=== PATIENT | male | born 1960 | race Caucasian/White ===

== ENCOUNTER 2018-10-30 07:41 | Outpatient (CLI) | payer BC, OTHER ==
[~2018-10-30] VITALS: Ht 190.5 cm; Wt 99.8 kg
[2018-10-30] VITALS (8 sets, daily range): BP systolic 109–120; BP diastolic 68–78
[2018-10-30] MEDS ORDERED: TOPROL XL25 MG PO (08:22)
[2018-10-30] MEDS ORDERED: ASPIRIN325 PO (08:23)
[2018-10-30] MEDS ORDERED: LIPITOR40 MG PO (08:23)
[2018-10-30] MEDS ORDERED: VITAMIN D1000 UNI1 PO (08:24)
[2018-10-30] MEDS ORDERED: THERA1 EAC1 PO (08:25)
[2018-10-30 09:03] LABS: HEMATOCRIT 43.5 % (42.0-52.0); HEMOGLOBIN 14.7 gm/dL (14.0-18.0); MCH 30.4 pg (26.0-34.0); MCHC 33.9 g/dL (28.0-37.0); MCV 89.8 fL (80.0-100.0); RBC 4.85 mil/uL (4.50-6.00); RDW 13.4 % (10.5-14.5); WBC 5.5 thou/uL (4.0-11.0)
[2018-10-30 09:05] LABS: CALCIUM 8.9 mg/dL (8.5-10.1); CREATININE 1.4 mg/dL (0.7-1.3); POTASSIUM 4.2 mmol/L (3.5-5.1)
--- NOTE | 2018-10-30 09:33 | EKG ---
[address] [address] ELECTROCARDIOGRAM REPORT Name: MICHELLE HILARIO [facility] [id number] ������������������ Admission: 10/30/18 ������������������ Attend Phys: Liam Coombs MD Discharge: ������������������ Date of : 58 Report #: [id number] ����������������������������������������������������������������� [id number] THIS REPORT FOR: //name// [facility] Test Date: 2018-10-30 Test Time: 08:41:29 Pat Name: MICHELLE HILARIO Department: Room: Gender: M [employer] Manager: RADHA : 1960 Requested By: Liam Coombs Order Number: [id number] MD: Frederick Lai Measurements Intervals [place] Rate: 58 P: 38 [place]: 149 QRS: 10 QRSD: 99 T: 42 QT: 410 QTc: 403 Interpretive Statements Sinus bradycardia Otherwise no significant abnormality No previous ECG available for comparison Electronically Signed On 10-30-2018 9:33:27 CDT by Frederick Lai [email or web address] ��������������������������������������������� <ELECTRONICALLY SIGNED> ���������������������������������������� By: Frederick Lai MD, [facility] ��������������������������������������������� 10/30/18 0933 0841 0841 rFederick Lai MD, FAC /EPI
--- NOTE | 2018-10-30 12:39 | CATHLAB ---
[facility] [place] [address] INVASIVE PROCEDURE REPORT Name: MICHELLE HILARIO [facility] [id number] ������������� Admission: 10/30/18 ������������� Attend Phys: Liam Coombs MD Discharge: ��� ������������� ��� Date of : 58 Date of Service: 10/30/18 1239 �� Report #: [id number] �������� ��������������������������������������������[id number] THIS REPORT FOR: //name// APPROVED REPORT Study performed: 10/30/2018 09:30:51 Patient Details The patient is a 58 year-old male Event Personnel Liam Coombs [employer] Professor, Donn Padilla RN RN, Tor Malcolm RN RN, Ruby Kinney Jackson, Valisa Monitor Procedures Performed Left Heart Cath w/or w/o Coronaries [id number] [facility] [address] w/wo Plasty Single LAD [id number] Indication Dyspnea, Unstable angina , Positive stress test, Chest pain Risk Factors Hypercholesterolemia, Hypertension Procedure Narrative The Right Groin^ was infiltrated with 1% Lidocaine subcutaneous anesthesia. A 4FR MULTIPACK JR 4/JL 4/PIG #[id number] sheath was inserted into the RFA^. Coronary angiography was performed using coronary diagnostic catheters. The right coronary system was accessed and visualized with a JR4 catheter. The left coronary system was accessed and visualized with a JL4 catheter. The left ventricle was accessed and visualized with a PIGTAIL catheter. Left ventriculogram was performed in NERI projection. Closure device was deployed with a Fr MYNXGRIP 6/7F #[id number]. The patient tolerated the procedure well and there were no complications associated with the procedure. Intraoperative Conscious Sedation Sedation start time: 1006 Case end Time: 1056 Fentanyl 100 mcg Versed 2 mg Fluoro Time: 11.02 minutes Dose: DAP 03504.00 cGycm2 1642 mGy Contrast Type and Amount: VISIPAQUE 190ML [facility] [place] [address] INVASIVE PROCEDURE REPORT Name: MICHELLE HILARIO Room #: REG [facility].#: [id number] ������������� Admission: 10/30/18 ������������� Attend Phys: Liam Coombs MD Discharge: ��� ������������� ��� Date of : 58 Date of Service: 10/30/18 1239 �� Report #: [id number] �������� ��������������������������������������������[id number] Coronary Angiography The patient's coronary anatomy is right dominant. Diagnostic Cath Left Main This is a large caliber vessel, patent with no flow-limiting lesions. LAD The LAD has a severe obstruction in the proximal segment, 95%. Diagonal 1 This is a patent vessel, with no flow-limiting lesions. Circumflex Supplies 2 obtuse marginal arteries. OM1 This is a patent vessel, with no flow-limiting lesions. OM2 This is a moderate size caliber vessel, with mild disease proximally, 20%. Right Coronary This is a dominant vessel with mild disease in the proximal mid segments, 30%. R PDA This is a patent vessel, with no flow-limiting lesions. RPLV This is a patent vessel, with no flow-limiting lesions. Left Ventriculography The left ventricle is normal in size with normal contractility. The left ventricular ejection fraction is estimated to be >55%. Hemodynamics The aortic pressure is 112/75 mmHg with a mean of 91 mmHg. The left ventricular pressure is 108/15 mmHg with a mean of mmHg. The left ventricular end diastolic pressure is 22 mmHg. PCI Technique Lesion Percutaneous coronary intervention was performed on the proximal left anterior descending artery segment. The lesion stenosis prior to intervention was 95% with DIRK 3 flow. A LangticeTA 6FR XB 3.5 #[id number] Guide Catheter was used to engage the ostium. A Luge Wire .014 x 182CM #[id number] Interventional Guidewire was used to cross the lesion. BALLOON DILATION A Balloon catheter Euphora RX 2.5 x 12 #[id number] was inserted and inflated up to 8.00atm for 23seconds. STENT DEPLOYMENT A stent RESOLUTE JATINDER RX 3.0 X 15 #[id number] was inserted and inflated [address] [address] INVASIVE PROCEDURE REPORT Name: MCJAXSONMICHELLE Room #: REG Rylee#: [id number] ������������� Admission: 10/30/18 ������������� Attend Phys: Liam Coombs MD Discharge: ��� ������������� ��� Date of : 58 Date of Service: 10/30/18 1239 �� Report #: [id number] �������� ��������������������������������������������[id number] up to 8.00atm for 12seconds. POST STENT DEPLOYMENT BALLOON DILATION A Balloon catheter GetFresh NC RX 3.0 x 8 #[id number] was inserted and inflated up to 6.00atm for 12seconds. Additional Inflation: 16.00atm for 22seconds. Additional Inflation: 16.00atm for 19seconds. Final angiography reveals 0 % stenosis with DIRK 3 flow. Conclusion 1. Successful insertion of a drug-eluting stent into the proximal LAD stenosis. 2. Mild disease in OM 2 and RCA. 3. Normal LV systolic function. 4. Recommend dual antiplatelet therapy and aggressive risk factor management. ��������������������������������������������� <ELECTRONICALLY SIGNED> ���������������������������������������� By: Liam Coombs MD ��������������������������������������������� 10/30/18 1239 1239 1239 Liam Coombs MD /INF
[2018-10-31 00:05] VITALS: BP 100/50
[2018-10-31 04:00] VITALS: BP 110/63
[2018-10-31 04:08] VITALS: BP 100/50
[2018-10-31 05:17] LABS: HEMATOCRIT 42.6 % (42.0-52.0); HEMOGLOBIN 14.4 gm/dL (14.0-18.0); MCH 30.3 pg (26.0-34.0); MCHC 33.8 g/dL (28.0-37.0); MCV 89.6 fL (80.0-100.0); RBC 4.75 mil/uL (4.50-6.00); RDW 13.5 % (10.5-14.5); WBC 6.8 thou/uL (4.0-11.0)
[2018-10-31 05:28] LABS: ALBUMIN 3.3 g/dL (3.4-5.0); CALCIUM 8.7 mg/dL (8.5-10.1); CREATININE 1.4 mg/dL (0.7-1.3); TOTAL BILIRUBIN 0.5 mg/dL (<0.1-1.0); TOTAL PROTEIN 6.2 g/dL (6.4-8.2)
[2018-10-31 07:15] VITALS: BP 115/71
[2018-10-31] MEDS ORDERED: EFFIENT10 MG PO (08:20)
[2018-10-31 09:39] VITALS: BP 115/71
--- NOTE | 2018-10-31 15:59 | EKG ---
[place] [address] [facility] [place] [address] ELECTROCARDIOGRAM REPORT Name: MICHELLE HILARIO Room #: [facility] MAHENDRA Mckee#: [id number] ������������������ Admission: 10/30/18 ������������������ Attend Phys: Liam Coombs MD Discharge: 10/31/18 ������������������ Date of : 58 Report #: [id number] ����������������������������������������������������������������� [id number] THIS REPORT FOR: //name// [facility] Test Date: 2018-10-30 Test Time: 11:39:29 Pat Name: MICHELLE HILARIO Department: Room: Gender: M Sap Developer: Nubia WELCH : 1960 Requested By: Liam Coombs Order Number: [id number] MD: Frederick Lai Measurements Intervals [place] Rate: 57 P: 42 [place]: 157 QRS: 2 QRSD: 100 T: 33 QT: 418 QTc: 407 Interpretive Statements Sinus bradycardia Otherwise no significant abnormality Compared to ECG 10/30/2018 08:41:29 No significant change was found Electronically Signed On 10-31-2018 15:59:38 CDT by Frederick Lai [email or web address] ��������������������������������������������� <ELECTRONICALLY SIGNED> ���������������������������������������� By: Frederick Lai MD, [facility] ��������������������������������������������� 10/31/18 1559 1139 1139 Frederick Lai MD, [facility] /EPI
--- NOTE | 2018-10-31 16:10 | EKG ---
[place] [address] [facility] [place] [address] ELECTROCARDIOGRAM REPORT Name: MICHELLE HILARIO Room #: DEP MAHENDRA Mckee#: [id number] ������������������ Admission: 10/30/18 ������������������ Attend Phys: Liam Coombs MD Discharge: 10/31/18 ������������������ Date of : 58 Report #: [id number] ����������������������������������������������������������������� [id number] THIS REPORT FOR: //name// [facility] Test Date: 2018-10-31 Test Time: 07:28:02 Pat Name: MICHELLE HILARIO Department: Room: 200 I Gender: M Tool Keeper: RADHA : 1960 Requested By: Liam Coombs Order Number: [id number] MD: Frederick Lai Measurements Intervals [place] Rate: 64 P: 42 [place]: 150 QRS: 15 QRSD: 98 T: 41 QT: 402 QTc: 415 Interpretive Statements Sinus rhythm Normal tracing Compared to ECG 10/30/2018 08:41:29 Sinus bradycardia no longer present Electronically Signed On 10-31-2018 16:10:41 CDT by Frederick Lai [email or web address] ��������������������������������������������� <ELECTRONICALLY SIGNED> ���������������������������������������� By: Frederick Lai MD, [facility] ��������������������������������������������� 10/31/18 1610 0728 7 Frederick Lai MD, FACC /EPI
--- NOTE | 2018-11-03 07:55 | D ---
[facility] [place] [address] DISCHARGE SUMMARY Name: MICHELLE HILARIO Room #: DEP MAHENDRA Mckee#: [id number] Admission: 10/30/18 ������������������ Attend Phys: Liam Coombs MD Discharge: 10/31/18 ������������������ Date of : 58 Report #: [id number] THIS REPORT FOR: //name// CC: Liam Toro DATE OF SERVICE: 10/31/2018 FINAL DIAGNOSES: 1. Unstable angina, status post coronary intervention. 1. Hypercholesterolemia. 2. Hypertension. HOSPITAL COURSE: Please see the original H and P for full details. The patient presented with chest pain with exertion. His episodes were intermittent. He underwent a stress test. On the treadmill, he developed chest pain while walking. There was significant ST segment depression, and the echocardiogram at peak exercise revealed anterior ischemia. Please see the cardiac catheterization report for full details. He has severe stenosis in the proximal LAD, undergoing placement of a drug-eluting stent. He tolerated the procedure without any issues. He remained stable overnight, ambulating on telemetry floor. No further episodes of chest pain or dyspnea. FINAL DISPOSITION: MEDICATIONS: Toprol-XL 25 mg daily, Lipitor 40 mg, aspirin once a day, Effient 10 mg daily. He will follow up in the office in several weeks. ��������������������������������������������� <ELECTRONICALLY SIGNED> ���������������������������������������� By: Liam Coombs MD ��������������������������������������������� 11/03/18 0755 0828 1543 Liam Coombs MD /jsoe
== END 2018-10-31 10:10 | disposition home or self-care (01) ==
LOC: CATH 07:41 → 2N 13:27 → CATH 14:45 → ENTRNSPT 10-31 09:44 → EDTRNSPTSTS 10-31 10:05 → CATH 10-31 10:10
PROVIDERS: Internal Medicine Cardiovascular Disease
DX: I25.119 Atherosclerotic heart disease of native coronary artery with unspecified angina pectoris (principal); R07.9 Chest pain, unspecified; I12.9 Hypertensive chronic kidney disease with stage 1 through stage 4 chronic kidney disease, or unspecified chronic kidney disease; N18.9 Chronic kidney disease, unspecified; E78.5 Hyperlipidemia, unspecified; Z79.82 Long term (current) use of aspirin; Z79.899 Other long term (current) drug therapy
CPT/HCPCS: 10081

== ENCOUNTER → 2019-12-09 | Outpatient (CLI) | payer BC, OTHER ==
[~2019-12-09] MED LIST: ASPIRIN325 PO; EFFIENT10 MG PO; LIPITOR40 MG PO; THERA1 EAC1 PO; TOPROL XL25 MG PO; VITAMIN D1000 UNI1 PO
== END ==
LOC: SJCVCIMAG 09:10
PROVIDERS: ATTEND Internal Medicine Cardiovascular Disease
DX: I25.10 Atherosclerotic heart disease of native coronary artery without angina pectoris (principal); I10 Essential (primary) hypertension; E78.5 Hyperlipidemia, unspecified; Z98.61 Coronary angioplasty status

== ENCOUNTER → 2020-12-15 | Outpatient (CLI) | payer OTHER | LOC: SJCVCIMAG 08:42 | PROVIDERS: ATTEND Internal Medicine Cardiovascular Disease | DX: I08.1 Rheumatic disorders of both mitral and tricuspid valves (principal); I25.10 Atherosclerotic heart disease of native coronary artery without angina pectoris ==